=== PATIENT | male | born 1945 | race Caucasian/White ===

== ENCOUNTER 2019-07-02 10:48 | Emergency (ER) | payer MEDICARE, OTHER ==
[2019-07-02 11:28] VITALS: BP 110/60
--- NOTE | 2019-07-02 11:52 | UC ---
Skin Complaint HPI - HPI Summary HPI Summary: The patient is a 74-year-old male that has had about a week history of a rash below his wedding band on his left ring finger as well as left upper and lower eyelid rash. His eyelid is slightly swollen with a fine crusty scale. He states it itches like crazy. His eyes been tearing but there has been no purulent discharge. He denies any eye pain or photophobia. He has very sensitive skin and there has been no change in soaps or detergents. - History of Current Complaint Chief Complaint: UCEye Time Seen by Provider: 07/02/19 11:36 Stated Complaint: EYE ISSUE Hx Obtained From: Patient Onset/Duration: Gradual Onset, Lasting Days Timing: Constant Onset Severity: Mild Current Severity: Moderate Pain Intensity: 0 Pain Scale Used: 0-10 Numeric Location: Discrete Character: Pruritus, Redness Aggravating Factor(s): Nothing Alleviating Factor(s): Nothing Associated Signs & Symptoms: Positive: Rash - Allergy/Home Medications Allergies/Adverse Reactions: Allergies Allergy/AdvReac Type Severity Reaction Status Date / Time erythromycin base Allergy Unknown Verified 07/02/19 11:26 Reaction Details tetracycline Allergy Unknown Verified 07/02/19 11:26 Reaction Details trovafloxacin AdvReac Rash Verified 07/02/19 11:26 PMH/Surg Hx/FS Hx/Imm Hx Previously Healthy: Yes Endocrine History: Thyroid Disease Cardiovascular History: Hypertension - Surgical History Surgical History: Yes Surgery Procedure, Year, and Place: Mediastinal mass removed 06/2011 at [facility], Nodule removed 1991 rt side of neck, 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 left knee replacement - Family History Known Family History: Positive: Hypertension - Social History Alcohol Use: Weekly Alcohol Amount: 2-3 times per week Substance Use Type: None Smoking Status (MU): Former Smoker Type: Cigarettes Length of Time of Smoking/Using Tobacco: quit at age 25 - Immunization History Most Recent Influenza Vaccination: season Review of Systems All Other Systems Reviewed And Are Negative: Yes Constitutional: Positive: Negative Skin: Positive: Rash Eyes: Positive: Negative ENT: Positive: Negative Respiratory: Positive: Negative Cardiovascular: Positive: Negative Gastrointestinal: Positive: Negative Genitourinary: Positive: Negative Motor: Positive: Negative Neurovascular: Positive: Negative Musculoskeletal: Positive: Negative Neurological: Positive: Negative Psychological: Positive: Negative Physical Exam Triage Information Reviewed: Yes Appearance: Well-Appearing, No Pain Distress, Well-Nourished Vital Signs: Initial Vital Signs Temp 98 F 07/02/19 11:23 Pulse 76 07/02/19 11:23 Resp 15 07/02/19 11:23 BP 110/60 07/02/19 11:23 Pulse Ox 100 07/02/19 11:23 Vital Signs Reviewed: Yes Eyes: Positive: Conjunctiva Clear, Other: - left eye tearing- not red ENT: Positive: Hearing grossly normal. Negative: Nasal congestion, Nasal drainage, Tonsillar swelling, Tonsillar exudate, Uvula midline Neck: Positive: Supple, Nontender, No Lymphadenopathy Respiratory: Positive: Lungs clear, Normal breath sounds, No respiratory distress Cardiovascular: Positive: RRR, No Murmur Musculoskeletal: Positive: No Edema Neurological: Positive: Alert Psychological Exam: Normal Skin Exam: Other - rash c/w contact derm left ring finger and eye lids Course/Dx - Diagnoses Provider Diagnosis: Contact dermatitis Discharge ED - Sign-Out/Discharge Documenting (check all that apply): Patient Departure All imaging exams completed and their final reports reviewed: No Studies - Discharge Plan Condition: Stable Disposition: HOME Prescriptions: Fexofenadine (NF) [Shruti (NF)] 60 mg PO BID PRN #14 tab PRN Reason: Itching Patient Education Materials: Contact Dermatitis (ED) Referrals: Sheela Amador [Medical Doctor] - As Soon As Possible Additional Instructions: You can use over the counter hydrocortisone cr to the rash on your left ring finger Do not use it on your eye lids You can use ZADITOR eye drops in your left eye - Billing Disposition and Condition Condition: STABLE Disposition: Home
== END 2019-07-02 12:20 | disposition home or self-care (01) ==
LOC: UCEAST 10:48
DX: L25.9 Unspecified contact dermatitis, unspecified cause (principal); I10 Essential (primary) hypertension; Z88.8 Allergy status to other drugs, medicaments and biological substances; Z87.891 Personal history of nicotine dependence; Z88.1 Allergy status to other antibiotic agents
CPT/HCPCS: 99212; G0463